=== PATIENT | female | born 1995 | race Two or more races ===

== ENCOUNTER 2020-03-07 10:54 | Emergency (ER) | payer OTHER ==
--- NOTE | 2020-03-07 11:06 | ER Document Report ---
ED Medical Screen (RME) - General Chief Complaint: Abdominal Pain Stated Complaint: ABDOMINAL PAIN Time Seen by Provider: 03/07/20 10:59 Mode of Arrival: Ambulatory Information source: Patient Notes: 24-year-old female presents to ED for complaint of abdominal pain mostly across the lower abdomen today. She states sometimes it is across the upper abdomen. She stated it started about a year ago it comes and goes she would burp a lot passed gas a lot but about 5 days ago the pain got much worse she is been having a lot of nausea with that sharp stabbing pain. She states last night her pain was a level 4 5 but today it is a level 2. She states she did get started on some Bentyl as they thought that it might be irritable bowel but it is not helped at all. Patient is alert oriented respirations regular nonlabored speaking in full sentences. She states she does not smoke cigarettes but she does use vapor cigarettes she is drinks 2-3 times a month does not use any drugs. She works at the [employer] and lives with her family. I have greeted and performed a rapid initial assessment of this patient. A comprehensive ED assessment and evaluation of the patient, analysis of test results and completion of medical decision making process will be conducted by an additional ED providers. - Related Data Allergies/Adverse Reactions: latex Allergy (Verified 03/07/20 10:59) Past Medical History - Social History Chew tobacco use (# tins/day): No Frequency of alcohol use: Social Drug Abuse: None Physical Exam - Vital signs Vitals: Temp Pulse Resp BP Pulse Ox 97.8 F 95 16 112/67 98 03/07/20 10:58 03/07/20 10:58 03/07/20 10:58 03/07/20 10:58 03/07/20 10:58 Course - Vital Signs Vital signs: Temp Pulse Resp BP Pulse Ox 97.8 F 95 16 112/67 98 03/07/20 11:00 03/07/20 10:58 03/07/20 10:58 03/07/20 10:58 03/07/20 10:58
[2020-03-07] MEDS ORDERED: NORMAL SALINE 1000 ML 1,000 ML IV ONE (11:07)
[2020-03-07] MEDS ORDERED: METOCLOPRAMIDE HCL 10 MG TABLET PO ONE (11:07)
[2020-03-07] MEDS ORDERED: ONDANSETRON HCL INJ/PF 4 MG/2 ML SDV IV ONE (11:17)
--- NOTE | 2020-03-07 11:20 | ER Document Report ---
ED GI/ - General Chief Complaint: Abdominal Pain Stated Complaint: ABDOMINAL PAIN Time Seen by Provider: 03/07/20 10:59 Primary Care Provider: [facility] [Provider Group] - Follow up in 3-5 days Mode of Arrival: Ambulatory Information source: Patient Notes: Patient presents complaining of lower pelvic pain that radiates around to her lower back for the past 5 days. Patient states she is had similar pain is this off and on over the past year ever since having a . Patient states she has previously seen a GI doctor for this type of pain and they thought that she may have IBS and placed on Bentyl although this did not help her symptoms. Patient denies any fever vomiting or diarrhea. Patient does report nausea. Patient states that she did have a bowel movement today although does feel like she is constipated. Patient denies any vaginal bleeding. - HPI Patient complains to provider of: Pelvic pain. No: Dysuria, , Vaginal bleeding, Vaginal discharge, Vomiting Onset: Other - 5 days Timing/Duration: Persistent Quality of pain: Sharp Pain Level: 2 Context: denies: Location: Pelvis Vaginal bleeding (Compared to normal period): None Menstrual period history: denies: Sexual history: Active Associated symptoms: Constipation, Nausea. denies: Diarrhea, Dysuria, Fever, Loss of appetite, Urinary hesitancy, Urinary frequency, Urinary retention, Urinary urgency, Vomiting Exacerbated by: Denies Relieved by: Denies Similar symptoms previously: Yes Recently seen / treated by doctor: No - Related Data Allergies/Adverse Reactions: latex Allergy (Verified 03/07/20 10:59) Past Medical History - General Information source: Patient - Social History Smoking Status: Current Every Day Smoker - Vapes Chew tobacco use (# tins/day): No Frequency of alcohol use: Social Drug Abuse: None Occupation: [employer] Lives with: Family Family History: Reviewed & Not Pertinent Patient has homicidal ideation: No - Medical History Medical History: Negative Past Surgical History: Reports: Hx Section, Hx Oral Surgery Review of Systems - Review of Systems Constitutional: No symptoms reported. denies: Fever, Recent illness EENT: No symptoms reported Cardiovascular: No symptoms reported. denies: Chest pain Respiratory: No symptoms reported. denies: Cough, Short of breath Gastrointestinal: Abdominal pain, Nausea, Constipation. denies: Diarrhea, Vomiting, Poor appetite Genitourinary: Flank pain. denies: Dysuria Female Genitourinary: No symptoms reported. denies: Vaginal bleeding Musculoskeletal: Back pain Skin: No symptoms reported Hematologic/Lymphatic: No symptoms reported Neurological/Psychological: No symptoms reported Physical Exam - Vital signs Vitals: Temp Pulse Resp BP Pulse Ox 97.8 F 95 16 112/67 98 03/07/20 10:58 03/07/20 10:58 03/07/20 10:58 03/07/20 10:58 03/07/20 10:58 - General General appearance: Appears well, Alert In distress: None - HEENT Head: Normocephalic, Atraumatic Eyes: Normal Conjunctiva: Normal Nasal: Normal Mouth/Lips: Normal Mucous membranes: Normal Neck: Normal, Supple. No: Lymphadenopathy - Respiratory Respiratory status: No respiratory distress Chest status: Nontender Breath sounds: Normal. No: Rales, Rhonchi, Stridor, Wheezing Chest palpation: Normal - Cardiovascular Rhythm: Regular Heart sounds: S1 appreciated, S2 appreciated - Abdominal Inspection: Normal Distension: No distension Bowel sounds: Normal Tenderness: Tender - lower pelvic Organomegaly: No organomegaly - Genitourinary External exam: Normal Speculum exam: Cervix closed, Vaginal discharge - minimal white Vaginal bleeding: None Bimanuel exam: Cervical motion tender, Adnexal tenderness - Back Back: CVA tenderness - bilat - Extremities General upper extremity: Normal inspection, Normal strength General lower extremity: Normal inspection, Normal strength - Neurological Neuro grossly intact: Yes Cognition: Normal Zoraida Coma Scale Eye Opening: Spontaneous Tensed Coma Scale Verbal: Oriented Zoraida Coma Scale Motor: Obeys Commands Tensed Coma Scale Total: 15 - Psychological Associated symptoms: Normal affect, Normal mood - Skin Skin Temperature: Warm Skin Moisture: Dry Skin Color: Normal Course - Re-evaluation Re-evalutation: 03/07/20 13:20 Patient with moderate stool noted on KUB. Patient without any obstructive pattern. Patient also with a hemorrhagic cyst noted on ultrasound. Patient with some mild vaginal discharge and cervical motion tenderness. Will provide antibiotic coverage for PID. Patient with no leukocytosis. Will plan for discharge at this time. Patient will be encouraged to follow-up with [facility] for recheck as well as a primary doctor. Patient presents with abdominal pain without signs of peritonitis or other life-threatening or serious etiology. Patient appears stable for discharge and has been instructed to return immediately if the symptoms worsen in any way. 03/07/20 13:21 - Vital Signs Vital signs: Temp Pulse Resp BP Pulse Ox 97.8 F 95 18 106/68 100 03/07/20 11:00 03/07/20 10:58 03/07/20 12:20 03/07/20 13:26 03/07/20 13:26 - Laboratory Result Diagrams: 03/07/20 11:50 03/07/20 11:50 Laboratory results interpreted by me: 03/07/20 11:50 Sodium 136.6 L Carbon Dioxide 31 H Glucose 74 L Labs- Entire Visit 03/07/20 03/07/20 03/07/20 11:50 11:50 11:50 WBC 6.9 RBC 4.27 Hgb 13.1 Hct 37.2 MCV 87 MCH 30.6 MCHC 35.1 RDW 13.3 Plt Count 237 Lymph % (Auto) 25.9 [place] % (Auto) 5.2 Eos % (Auto) 2.4 Baso % (Auto) 0.5 Absolute Neuts (auto) 4.5 Absolute Lymphs (auto) 1.8 Absolute Monos (auto) 0.4 Absolute Eos (auto) 0.2 Absolute Basos (auto) 0.0 Seg Neutrophils % 66.0 Sodium 136.6 L Potassium 4.4 Chloride 101 Carbon Dioxide 31 H Anion Gap 5 BUN 13 Creatinine 0.59 Est GFR ( Amer) > 60 Est GFR (MDRD) Non-Af > 60 Glucose 74 L Calcium 9.5 Total Bilirubin 0.4 Direct Bilirubin 0.0 Neonat Total Bilirubin Not Reportable Neonat Direct Bilirubin Not Reportable Neonat Indirect Bili Not Reportable AST 19 ALT 10 Alkaline Phosphatase 44 Total Protein 7.3 Albumin 4.3 Lipase 101.6 Serum HCG, Qual NEGATIVE Urine Color Urine Appearance Urine pH Ur Specific Ryan Urine Protein Urine Glucose (UA) Urine Ketones Urine Blood Urine Nitrite (Reflex) Urine Bilirubin Urine Urobilinogen Leukocyte Esterase Rfl Urine RBC (Auto) Squamous Epi Cells Auto Urine Ascorbic Acid Epi Cells (Wet Prep) Trichomonas (Wet Prep) Vaginal WBC Vaginal Yeast 03/07/20 03/07/20 11:50 12:22 WBC RBC Hgb Hct MCV MCH MCHC RDW Plt Count Lymph % (Auto) [place] % (Auto) Eos % (Auto) Baso % (Auto) Absolute Neuts (auto) Absolute Lymphs (auto) Absolute Monos (auto) Absolute Eos (auto) Absolute Basos (auto) Seg Neutrophils % Sodium Potassium Chloride Carbon Dioxide Anion Gap BUN Creatinine Est GFR ( Amer) Est GFR (MDRD) Non-Af Glucose Calcium Total Bilirubin Direct Bilirubin Neonat Total Bilirubin Neonat Direct Bilirubin Neonat Indirect Bili AST ALT Alkaline Phosphatase Total Protein Albumin Lipase Serum HCG, Qual Urine Color COLORLESS Urine Appearance CLEAR Urine pH 7.0 Ur Specific Ryan 1.001 Urine Protein NEGATIVE Urine Glucose (UA) NEGATIVE Urine Ketones NEGATIVE Urine Blood NEGATIVE Urine Nitrite (Reflex) NEGATIVE Urine Bilirubin NEGATIVE Urine Urobilinogen NEGATIVE Leukocyte Esterase Rfl NEGATIVE Urine RBC (Auto) 0 Squamous Epi Cells Auto 2 Urine Ascorbic Acid NEGATIVE Epi Cells (Wet Prep) 3+ EPITHELIALS SEEN Trichomonas (Wet Prep) NO TRICHOMONAS SEEN Vaginal WBC RARE WBCS SEEN Vaginal Yeast NO YEAST SEEN - Diagnostic Test Radiology reviewed: Image reviewed, Reports reviewed Discharge - Discharge Clinical Impression: PID (acute pelvic inflammatory disease) Constipation Qualifiers: Constipation type: unspecified constipation type Qualified Code(s): K59.00 - Constipation, unspecified Ovarian cyst Qualifiers: Laterality: right Qualified Code(s): N83.201 - Unspecified ovarian cyst, right side Condition: Stable Disposition: HOME, SELF-CARE Instructions: Abdominal Pain ([facility]), Constipation ([facility]), Ovarian Cyst ([facility]), Pelvic Inflammatory Disease ([facility]) Additional Instructions: Return immediately for any new or worsening symptoms Followup with your primary care provider, call tomorrow to make a followup appointment Increase oral fluids and stay well-hydrated 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 Polyethylene Glycol 3350 [Miralax] 17 gm PO DAILY #119 powder Naproxen [Naprosyn 250 Nmg Tablet] 1 tab PO BID #14 tablet Ondansetron [Zofran Odt 4 mg Tablet] 1 tab PO Q6H #15 tab.rapdis Forms: Return to Work Referrals: [facility] [Provider Group] - Follow up in 3-5 days
[2020-03-07 12:07] LABS: ABSOLUTE EOSINOPHILS # (AUTO) 0.2 10^3/uL (0.0-0.6); ABSOLUTE LYMPHOCYTES (AUTO) 1.8 10^3/uL (0.5-4.7); ABSOLUTE MONOCYTES (AUTO) 0.4 10^3/uL (0.1-1.4); ABSOLUTE NEUT (AUTO) 4.5 10^3/uL (1.7-8.2); BASOPHILS % (AUTO) 0.5 % (0-2); EOSINOPHILS % (AUTO) 2.4 % (0-6); HEMATOCRIT 37.2 % (36.0-47.0); HEMOGLOBIN 13.1 g/dL (12.0-15.5); LYMPHOCYTES % (AUTO) 25.9 % (13-45); MEAN CORPUSCULAR HEMOGLOBIN 30.6 pg (27.0-33.4); MEAN CORPUSCULAR HGB CONC 35.1 g/dL (32.0-36.0); MEAN CORPUSCULAR VOLUME 87 fl (80-97); MONOCYTES % (AUTO) 5.2 % (3-13); PLATELET COUNT 237 10^3/uL (150-450); RED BLOOD COUNT 4.27 10^6/uL (3.72-5.28); RED CELL DISTRIBUTION WIDTH 13.3 % (11.5-14.0); TOTAL CELLS COUNTED % (AUTO) 100 %; WHITE BLOOD COUNT 6.9 10^3/uL (4.0-10.5)
[2020-03-07 12:13] LABS: APPEARANCE,URINE CLEAR; BILIRUBIN,URINE NEGATIVE (NEGATIVE); COLOR,URINE COLORLESS; GLUCOSE, URINE NEGATIVE (NEGATIVE); KETONES,URINE NEGATIVE (NEGATIVE); PROTEIN,URINE NEGATIVE (NEGATIVE); URINE SPECIFIC GRAVITY 1.001; UROBILINOGEN,URINE NEGATIVE mg/dL (<2.0)
[2020-03-07 12:25] LABS: ALBUMIN 4.3 g/dL (3.5-5.0); ALKALINE PHOSPHATASE 44 U/L (38-126); ANION GAP 5 (5-19); ASPARTATE AMINO TRANSFERASE 19 U/L (14-36); BILIRUBIN,TOTAL 0.4 mg/dL (0.2-1.3); BLOOD UREA NITROGEN 13 mg/dL (7-20); CALCIUM 9.5 mg/dL (8.4-10.2); CARBON DIOXIDE 31 mmol/L (22-30); CHLORIDE 101 mmol/L (98-107); GLUCOSE 74 mg/dL (75-110); POTASSIUM 4.4 mmol/L (3.6-5.0); TOTAL PROTEIN 7.3 g/dL (6.3-8.2)
[2020-03-07] MEDS ORDERED: FENTANYL CITRATE INJ/PF 100 MCG/2 ML AMPUL IV ONE (12:28)
[2020-03-07] MEDS ORDERED: CEFTRIAXONE INJ 250 MG VIAL IV ONE (12:35)
[2020-03-07] MEDS ORDERED: CEFTRIAXONE 1 GM/D5W RTU 1 GM/50 ML RTUPB IV ONE (12:55)
[2020-03-07 12:58] LABS: EPITHELIALS (WET MOUNT) 3+ EPITHELIALS SEEN; T.VAGINALIS (WET MOUNT) NO TRICHOMONAS SEEN; WBCS (WET MOUNT) RARE WBCS SEEN; YEAST (WET MOUNT) NO YEAST SEEN
--- NOTE | 2020-03-07 13:05 | RADIOLOGY REPORT (SQ) ---
EXAM DESCRIPTION: KUB/ABDOMEN (SINGLE VIEW) IMAGES COMPLETED DATE/TIME: 03/07/2020 12:57 pm REASON FOR STUDY: constipation abd pain COMPARISON: None. NUMBER OF VIEWS: One view. TECHNIQUE: Supine radiographic image of the abdomen acquired. LIMITATIONS: None. FINDINGS: BOWEL GAS PATTERN: Normal bowel gas pattern. No dilated loops. Moderate formed stool thro ughout the colon. CALCIFICATIONS: No suspicious calcifications. SOFT TISSUES: No gross mass or suggestion of organomegaly. HARDWARE: None in the abdomen. BONES: No acute fracture. No worrisome bone lesions. OTHER: No other significant finding. IMPRESSION: No evidence of acute intra-abdominal/pelvic process. Moderate formed stool throughout the colon. TECHNICAL DOCUMENTATION: JOB ID: [id number] 2010 [employer]- All Rights Reserved Reading location - IP/workstation name: [email or web address]
--- NOTE | 2020-03-07 13:15 | RADIOLOGY REPORT (SQ) ---
EXAM DESCRIPTION: U/S NON OB PEL TV W/DOPPLER IMAGES COMPLETED DATE/TIME: 03/07/2020 12:59 pm REASON FOR STUDY: pelvic pain COMPARISON: None. TECHNIQUE: Dynamic and static grayscale images acquired of the pelvis via transvaginal approach and recorded on PACS. Additional selected color Doppler and spectral images recorded. LIMITATIONS: None. FINDINGS: UTERUS: Normal in size and contour measuring 8.0 x 4.1 x 5.0 cm. ENDOMETRIAL STRIPE: No focal thickening. Endometrial stripe measures 4 mm. CERVIX: No nabothian cysts. RIGHT OVARY AND DOPPLER: Normal size measuring 4.6 x 2.7 x 2.9 cm. Complex heterogeneous cystic area measuring approximately 2.5 x 2.2 x 1.5 cm, likely hemorrhagic cyst. Normal arterial vascular flow w ithout evidence for torsion. LEFT OVARY AND DOPPLER: Normal size measuring 3.2 x 2.2 x 1.9 cm. No worrisome masses. Normal arteria l vascular flow without evidence for torsion. FREE FLUID: Trace fluid within the cul-de-sac. OTHER: No other significant finding. IMPRESSION: 1. Unremarkable sonographic appearance of the uterus. 2. Complex right ovarian cystic lesion measuring up to 2.5 cm, likely hemorrhagic cyst. TECHNICAL DOCUMENTATION: JOB ID: [id number] 2010 [employer]- All Rights Reserved Rev-03/24 Reading location - IP/workstation name: [email or web address]
[2020-03-07] MEDS ORDERED: MAGNESIUM HYDROXIDE SUSP 30 ML UDCUP PO ONE (13:34)
[2020-03-07 13:56] VITALS: BP 106/68
[2020-03-07 14:26] LABS: CHLAM PCR NOT DETECTED (NOT DETECT)
== END 2020-03-07 14:13 | disposition home or self-care (01) ==
LOC: ER 10:54
DX: N73.9 Female pelvic inflammatory disease, unspecified (principal); K59.00 Constipation, unspecified; N83.201 Unspecified ovarian cyst, right side; R10.2 Pelvic and perineal pain; M54.5 Low back pain; R11.0 Nausea; F17.290 Nicotine dependence, other tobacco product, uncomplicated; Z98.890 Other specified postprocedural states; Z91.040 Latex allergy status
CPT/HCPCS: 99284; 96361; 96374; 96375; 36415; 87210; 83690; 84703; 85025; 80053; 81001; 87491; 87591; 74018; 76830; 93976; J3010; J3490; J2405; J7030; J0696

== ENCOUNTER → 2020-06-07 | Outpatient (CLI) | payer OTHER ==
--- NOTE | 2020-06-07 10:04 | ER RDC ASSESSMENT REPORT ---
Intake - In the Last 14 days Have you traveled outside [place]?: No Have you been in close contact with someone CONFIRMED: No Worked in Healthcare?: No - Symptoms Subjective Fever([place] feverish): Yes Chills: No Muscule Aches: Yes Runny Nose: Yes Sore Throat: Yes Cough (New or worsening chronic cough): No Shortness of breath: Yes Nausea or Vomiting: Yes Headache: Yes Abdominal Pain: No Diarrhea(3 or more loose stools in last 24 hours): No - Do you have any of the following Chronic lung disease: Asthma or emphysema or COPD: No Cystic Fibrosis: No Diabetes: No High Blood Pressure: No Cardiovascular Disease: No Chronic Kidney Disease: No Chronic Liver Disease: No Chronic blood disorder like Sickle Cell Disease: No Weak immune system due to disease or medication: No Neurologic condition that limits movement: No Developmental delay - Moderate to Severe: No Recent (within past 2 weeks) or current : No Morbid Obesity (>100 pounds over ideal weight): No - Objective Temperature: 97.6 F Pulse Rate: 78 Respiratory Rate: 14 Blood Pressure: 117/68 O2 Sat by Pulse Oximetry: 99 Objective: Patient is a well-appearing 25-year-old female who presents today for COVID-19 screening. Disposition: Home; Selfcare General - General Stated Complaint: Upper respiratory symptoms Mode of Arrival: Ambulatory Information source: Patient Notes: The patient was evaluated during the global COVID-19 pandemic. That diagnosis was suspected/considered upon initial presentation. Their evaluation, treatment, and testing was consistent with current guidelines for patients who present with complaints or symptoms that may be related to COVID-19. - HPI Patient complains to provider of: Upper respiratory symptoms Onset: Last week Onset/Duration: Persistent Quality of pain: Achy Severity: Mild Pain Level: 1 Context: Generalized body aches. 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 HEAD: Atraumatic, normocephalic. EYES: sclera anicteric, conjunctiva are normal. ENT: nares patent. Moist mucous membranes. NECK: Normal range of motion, supple without lymphadenopathy. LUNGS: CTAB and equal. No wheezes rales or rhonchi. HEART: Regular rate and rhythm without murmurs. ABDOMEN: Soft, nontender, normal bowel sounds, no guarding. EXTREMITIES: Normal range of motion, no pitting edema. No cyanosis. BACK: No midline or CVA tenderness. NEUROLOGICAL: Cranial nerves grossly intact. Normal speech. Normal gait. PSYCH: Normal mood, normal affect. SKIN: Warm, Dry, normal color and turgor, no obvious lesions or rash noted. Diagnostic Results Laboratory Results: Patient advised at this time they are considered a Person Under Investigation (PUI) for the COVID-19 Coronavirus. They have been made aware it is currently taking 3-5 days to receive their results, and The [facility] Department will call to advise them of their result, whether it is POSITIVE or NEGATIVE. Patient Education/Counseling Counseling/Education: Patient presents with upper respiratory symptoms worrisome for possible COVID- 19. Patient does not have symptoms worrisome as an emergency such as difficulty breathing, shortness of breath, chest pain, pressure, confusion or cyanosis. Patient appears suitable for discharge. Patient's vital signs are stable and patient is nontoxic in appearance. Good return precautions have been discussed with patient, patient verbalized understanding and is agreeable with discharge plan of care at this time. Patient provided COVID-19 discharge instructions to include: As a person under investigation for COVID-19, the [place] department of Health and Human Services, division of public health advises you to adhere to the following guidance until your test results are reported to you. If your test result is positive, you will receive additional information from your provider and your local health department at that time. Remain at home until you are cleared by the health provider or public health authorities. Keep a log of visitors to your home, notify any visitors to your home of your isolation status. If you plan to move to a new address or leave the county, notify the local health department in your County. Call your doctor or seek care if you have an urgent medical need. Before seeking medical care, call ahead to get instructions from the provider before arriving at the medical office clinic or hospital. Notify them that you are being tested for the virus that causes COVID-19 so that arrangements can be made, as necessary, to prevent transmission to others in the healthcare setting. Next, notify the local health department in your county. If a medical emergency arises and you need to call 911, inform dispatch and the first responders that you are being tested for the virus that causes COVID-19. Next, notify the local health department in your county. Patient provided education on smoking cessation and the harmful effects of smoking (including vaping), especially in the presence of Co-morbid conditions such as Hypertension, Diabetes, and/or other chronic illnesses. Patient verbalized understanding of smoking cessation education, and the increased health benefits of quitting. Guidance for worsening S/SX: For worsening symptoms, patient has been advised to contact their Primary Care Provider, or go to the nearest Emergency Department. RDC Discharge - Discharge Clinical Impression: COVID-19 Screening URI (upper respiratory infection) Qualifiers: URI type: unspecified URI Qualified Code(s): J06.9 - Acute upper respiratory infection, unspecified Condition: Stable Disposition: Home; Selfcare
[2020-06-07 11:03] VITALS: BP 117/68
== END ==
LOC: RDC 09:58
PROVIDERS: ATTEND Nurse Practitioner Family
DX: U07.1 COVID-19 (principal); J06.9 Acute upper respiratory infection, unspecified; R06.02 Shortness of breath; R50.9 Fever, unspecified; J02.9 Acute pharyngitis, unspecified; J34.89 Other specified disorders of nose and nasal sinuses; M79.10 Myalgia, unspecified site; R11.2 Nausea with vomiting, unspecified; R51 Headache; F17.290 Nicotine dependence, other tobacco product, uncomplicated
CPT/HCPCS: 87635; 99201; 99211; C9803